=== PATIENT | male | born 1985 | race Caucasian/White ===

== ENCOUNTER 2023-08-06 17:23 | Emergency (ER) | payer OTHER ==
[~2023-08-06] VITALS: Ht 175.3 cm; Wt 68.0 kg
[2023-08-06 18:05] VITALS: BP 118/79
== END 2023-08-06 18:00 | disposition other institution, planned readmission (95) ==
LOC: ED 17:23
DX: F10.10 Alcohol abuse, uncomplicated (principal); Z53.21 Procedure and treatment not carried out due to patient leaving prior to being seen by health care provider
CPT/HCPCS: 80053; 83690; 85025; 99284; G0480

== ENCOUNTER 2023-08-12 10:27 | Emergency (ER) | payer OTHER ==
[~2023-08-12] VITALS: Ht 175.3 cm; Wt 75.3 kg
[~2023-08-12 10:27] MED LIST: LEVETIRACETAM500 MG PO; SERTRALINE HCL50 MG PO
--- OUTSIDE RECORDS SUMMARY | 2023-08-12 10:34 | XMS ---
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 08/06/2023 17:25 - Patient eloped before treatment completed. - Patient with suicidal and/or homicidal ideations eloped. - Patient eloped with IV in place. Details: Patient left AMA CRITERIA MET - [facility] - 2 Visits in 30 Days CARE PROVIDERS There are no care providers on record at this time. Zoë has no Care Guidelines for this patient. EGloria. VISIT COUNT (12 MO.) 3 [facility] H. TOTAL 3 NOTE: Visits indicate total known visits. ED/C VISIT TRACKING (12 MO.) 08/12/2023 10:27 [facility] [place] TYPE: Emergency COMPLAINT: - SUB ABUSED 08/11/2023 14:52 [facility] [place] TYPE: Emergency COMPLAINT: - WITHDRAWALS 08/06/2023 17:25 [facility] [place] TYPE: Emergency COMPLAINT: - ALCOHOL WITHDRAWAL DIAGNOSES: - Alcohol abuse, uncomplicated - Procedure and treatment not carried out due to patient leaving prior to being seen by health care provider INPATIENT VISIT TRACKING (12 MO.) No inpatient visits to display in this time frame [email or web address]
[2023-08-12 10:51] LABS: BASOPHILS 0.6 % (0-2); EOSINOPHILS 0.6 % (0-6); HEMATOCRIT 38.3 % (35.0-50.0); HEMOGLOBIN 12.7 g/dL (12.0-18.0); LYMPHOCYTES 39.5 % (24-44); MCH 29.7 (27-36); MCHC 33.2 g/dl (30-36); MCV 89.4 fl (81-99); MONOCYTES 11.9 % (0-12); NEUTROPHILS 47.4 % (39-80); PLATELET COUNT 197 K/uL (140-440); RBC 4.28 M/ul (4.3-5.7); RDW 17.2 (10.5-15.0)
[2023-08-12 11:08] LABS: ALBUMIN 3.7 g/dL (3.4-5.0); ALBUMIN/GLOBULIN RATIO 0.9 (1.1-2.4); ANION GAP 15.8 (7-21); BILIRUBIN, TOTAL 0.3 ng/dL (0.2-1.0); BUN/CREATININE RATIO 13.04 (6.0-28.6); CALCIUM 8.6 mg/dL (8.5-10.1); CREATININE, SERUM 0.69 mg/dL (0.70-1.30); POTASSIUM 3.8 mmol/L (3.5-5.1); PROTEIN, TOTAL 7.8 g/dL (6.4-8.2)
[2023-08-12 11:35] LABS: ABO O; ANTIBODY SCREEN NEGATIVE; RH POSITIVE
[2023-08-12 11:50] LABS: AMPHETAMINES, UR NEGATIVE (NEGATIVE); BARBITURATES, UR NEGATIVE (NEGATIVE); BENZODIAZEPINES, UR POSITIVE (NEGATIVE); BUPRENORPHINE,UR NEGATIVE (NEGATIVE); COCAINE, UR NEGATIVE (NEGATIVE); MARIJUANA (THC), UR NEGATIVE (NEGATIVE); MDMA, UR NEGATIVE (NEGATIVE); METHADONE, UR NEGATIVE (NEGATIVE); METHAMPHETAMINE, UR NEGATIVE (NEGATIVE); OPIATES, UR NEGATIVE (NEGATIVE); OXYCODONE, UR NEGATIVE (NEGATIVE); PHENCYCLIDINE, UR NEGATIVE (NEGATIVE); TRICYCLIC ANTIDEPRESSANT, UR NEGATIVE (NEGATIVE)
[2023-08-12] MEDS ORDERED: PROMETHAZINE HC25 M1 PO (15:28)
[2023-08-12 16:00] VITALS: BP 100/65
[2023-08-13] MEDS ORDERED: PROTONIX40 MG PO (20:13)
== END 2023-08-12 16:02 | disposition home or self-care (01) ==
LOC: ED 10:27
PROVIDERS: Emergency Medicine
DX: F10.10 Alcohol abuse, uncomplicated (principal); Y90.8 Blood alcohol level of 240 mg/100 ml or more
CPT/HCPCS: 36415; 80053; 83690; 83735; 85025; 86850; 86900; 86901; C9113; G0480; J1790; J3411; J7030

== ENCOUNTER 2023-08-13 12:00 | Emergency (ER) | payer OTHER ==
[~2023-08-13] VITALS: Ht 175.3 cm; Wt 75.3 kg
[~2023-08-13 12:00] MED LIST changes: +PROMETHAZINE HC25 M1 PO
--- OUTSIDE RECORDS SUMMARY | 2023-08-13 12:08 | XMS ---
PreManage Notification: YVES GONZALEZ Security Parish Visitor Events 1 event(s) in the past 18 months Most recent security events: Elopement at [facility] 08/06/2023 17:25 - Patient eloped before treatment completed. - Patient with suicidal and/or homicidal ideations eloped. - Patient eloped with IV in place. Details: Patient left AMA CRITERIA MET - [facility] - 2 Visits in 30 Days CARE PROVIDERS There are no care providers on record at this time. Zoë has no Care Guidelines for this patient. EGloria. VISIT COUNT (12 MO.) 4 [facility] H. TOTAL 4 NOTE: Visits indicate total known visits. ED/C VISIT TRACKING (12 MO.) 08/13/2023 12:01 [facility] [place] TYPE: Emergency COMPLAINT: - ALTERED 08/12/2023 10:27 [facility] [place] TYPE: Emergency COMPLAINT: - SUB ABUSED 08/11/2023 14:52 [facility] [place] TYPE: Emergency COMPLAINT: - WITHDRAWALS 08/06/2023 17:25 [facility] [place] TYPE: Emergency COMPLAINT: - ALCOHOL WITHDRAWAL DIAGNOSES: - Alcohol abuse, uncomplicated - Procedure and treatment not carried out due to patient leaving prior to being seen by health care provider INPATIENT VISIT TRACKING (12 MO.) No inpatient visits to display in this time frame [id number]
[2023-08-13 12:23] LABS: BASOPHILS 0.6 % (0-2); EOSINOPHILS 0.4 % (0-6); HEMATOCRIT 34.4 % (35.0-50.0); HEMOGLOBIN 11.5 g/dL (12.0-18.0); LYMPHOCYTES 25.3 % (24-44); MCH 29.8 (27-36); MCHC 33.6 g/dl (30-36); MCV 88.9 fl (81-99); MONOCYTES 12.2 % (0-12); NEUTROPHILS 61.5 % (39-80); PLATELET COUNT 176 K/uL (140-440); RBC 3.87 M/ul (4.3-5.7); RDW 17.3 (10.5-15.0)
[2023-08-13 12:46] LABS: ALBUMIN 3.4 g/dL (3.4-5.0); ALBUMIN/GLOBULIN RATIO 0.92 (1.1-2.4); ANION GAP 12.3 (7-21); BILIRUBIN, TOTAL 0.3 ng/dL (0.2-1.0); BUN/CREATININE RATIO 12.12 (6.0-28.6); CALCIUM 8.4 mg/dL (8.5-10.1); CREATININE, SERUM 0.66 mg/dL (0.70-1.30); MAGNESIUM 1.4 mg/dL (1.8-2.4); POTASSIUM 3.3 mmol/L (3.5-5.1); PROTEIN, TOTAL 7.1 g/dL (6.4-8.2)
[2023-08-13 14:52] VITALS: BP 120/80
[2023-08-13] MEDS ORDERED: PROTONIX40 MG PO (20:13)
--- NOTE | 2023-08-14 06:26 | EKG ---
[facility] [address] [place], [place] [address] Signed Sinus tachycardia Otherwise normal ECG No previous ECGs available Confirmed by JOSÉ MIGUEL CUEVAS MD ([id number]) on 08/14/2023 6:26:08 AM Electronically Signed By: JOSÉ MIGUEL CUEVAS 08/14/23 0626 PATIENT NAME: YVES GONZALEZ Electrocardiogram DATE OF : 83 PHYSICIAN: JOSÉ MIGUEL CUEVAS REPORT #: [id number] REPORT IS CONFIDENTIAL AND NOT TO BE RELEASED WITHOUT AUTHORIZATION
== END 2023-08-13 14:52 | disposition home or self-care (01) ==
LOC: ED 12:00
PROVIDERS: Emergency Medicine
DX: F10.239 Alcohol dependence with withdrawal, unspecified (principal); F10.229 Alcohol dependence with intoxication, unspecified; Y90.7 Blood alcohol level of 200-239 mg/100 ml; Z79.899 Other long term (current) drug therapy
CPT/HCPCS: 36415; 80053; 83690; 83735; 85025; 93005; 93010; 96365; 96366; 96368; 96375; 99285-25; G0480; J1953; J2060; J2405; J3411; J3475; J7030

== ENCOUNTER 2024-01-30 15:41 | Emergency (ER) | payer OTHER ==
[~2024-01-30] VITALS: Ht 175.3 cm; Wt 68.0 kg
[~2024-01-30 15:41] MED LIST changes: +PROTONIX40 MG PO
--- OUTSIDE RECORDS SUMMARY | 2024-01-30 15:48 | XMS ---
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 - Patient eloped before treatment completed. - Patient with suicidal and/or homicidal ideations eloped. Details: Patient LWBS Elopement at [facility] 08/06/2023 17:25 - Patient eloped with IV in place. - Patient eloped before treatment completed. - Patient with suicidal and/or homicidal ideations eloped. Details: Patient left AMA CRITERIA MET - 6 ED Visits in 6 Months - Group Notification CARE PROVIDERS -[place]- Dentist: Starch Dumper [facility] PHONE: [phone] HAL BUSH [facility] Current PHONE: Unknown MICHELLE OLVETT Emergency Medicine Current PHONE: [phone] MARIAN ENAMORADO Emergency Medicine Current [place] PHONE: [phone] JOSESITO PULIDO Emergency Medicine Current PHONE: [phone] JENNIFER TRINIDAD Nurse Practitioner: Family Kiki RYAN PHONE: Unknown KEMAL FLETCHER Emergency Medicine Current PHONE: [phone] SHERRIE SPARROW Emergency Medicine Current [place] PHONE: [phone] INGRID PRO Current PHONE: Unknown BERTRAND BAKER Emergency Medicine Current PHONE: [phone] [facility]: [facility] Current \F\ [facility] PHONE: [phone] BHARATI HERNANDEZ Emergency Medicine Current [place] PHONE: Unknown [facility] PHONE: Unknown Care Guidelines exist for the following facilities: [facility] ( 04/02/2020 ) Jass VISIT COUNT (12 MO.) [address] [facility] TOTAL 6 NOTE: Visits indicate total known visits. ED/UCC VISIT TRACKING (12 MO.) 01/30/2024 15:[address] [facility] [place] TYPE: Emergency COMPLAINT: - SEIZURE 08/13/2023 18:[address] [facility] [place] [place] TYPE: Emergency COMPLAINT: - VOMITING BLOOD 08/13/2023 12:[address] [facility] [place] [place] TYPE: Emergency COMPLAINT: - ALTERED DIAGNOSES: - Alcohol dependence with intoxication, unspecified - Alcohol dependence with withdrawal, unspecified - Blood alcohol level of 200-239 mg/100 ml - Other foreign food cook specialty (current) drug therapy - Syncope and collapse 08/12/2023 10:[address] [facility] [place] TYPE: Emergency COMPLAINT: - SUB ABUSED DIAGNOSES: - Alcohol abuse, uncomplicated - Blood alcohol level of 240 mg/100 ml or more - Unspecified abdominal pain 08/11/2023 14:52 [facility] [place] TYPE: Emergency COMPLAINT: - WITHDRAWALS 08/06/2023 17:25 [facility] [place] TYPE: Emergency COMPLAINT: - ALCOHOL WITHDRAWAL DIAGNOSES: - Alcohol abuse, uncomplicated - Procedure and treatment not carried out due to patient leaving prior to being seen by health care provider INPATIENT VISIT TRACKING (12 MO.) 08/14/2023 16:49 [facility] [place] TYPE: Critical Care COMPLAINT: - ALCOHOL WITHDRAWAL,SEIZURE DISORDER DIAGNOSES: - Acute gastritis without bleeding - Acute gastritis without bleeding - Alcohol abuse with withdrawal, unspecified - Alcohol dependence with withdrawal, unspecified - Contact with and (suspected) exposure to COVID-19 - Contact with and (suspected) exposure to COVID-19 - Epilepsy, unspecified, not intractable, without status epilepticus - Epilepsy, unspecified, not intractable, without status epilepticus - Hematemesis - Hematemesis - Other foreign food cook specialty (current) drug therapy - Other foreign food cook specialty (current) drug therapy - Other specified postprocedural states - Other specified postprocedural states - Unspecified fall, initial encounter [email or web address]
[2024-01-30] MEDS ORDERED: MULTIVITAMINS 10 ML,FOLIC ACID 1 MG,THIAMINE HCL 100 MG in SODIUM CHLORIDE 0.9% 1,000 ML IV ONE (16:15)
[2024-01-30] MEDS ORDERED: LORazepam 2 MG/ML VIAL IV ONE (16:30)
[2024-01-30] MEDS ORDERED: ondansetron HCL 4 MG/2 ML VIAL IV ONE (16:30)
[2024-01-30] MEDS ORDERED: LORazepam 2 MG/ML VIAL IV/IM PRN (16:30)
[2024-01-30] MEDS ORDERED: levETIRAcetam 500 MG/5 ML VIAL IV ONE (16:30)
[2024-01-30 16:34] LABS: BASOPHILS 0.8 % (0-2); HEMATOCRIT 46.6 % (35.0-50.0); HEMOGLOBIN 15.7 g/dL (12.0-18.0); LYMPHOCYTES 12.2 % (24-44); MCH 32.2 (27-36); MCHC 33.7 g/dl (30-36); MCV 95.5 fl (81-99); MONOCYTES 5.5 % (0-12); NEUTROPHILS 81.5 % (39-80); PLATELET COUNT 209 K/uL (140-440); RBC 4.88 M/ul (4.3-5.7); RDW 14.2 (10.5-15.0)
[2024-01-30 16:42] LABS: INR 1.01 (0.80-1.30); PROTIME 12.6 Sec (11.2-14.2)
[2024-01-30 16:47] LABS: ALBUMIN 3.5 g/dL (3.4-5.0); ALBUMIN/GLOBULIN RATIO 0.74 (1.1-2.4); ANION GAP 18.7 (7-21); BILIRUBIN, TOTAL 0.3 ng/dL (0.2-1.0); BUN/CREATININE RATIO 10.29 (6.0-28.6); CALCIUM 8.2 mg/dL (8.5-10.1); CREATININE, SERUM 0.68 mg/dL (0.70-1.30); POTASSIUM 3.7 mmol/L (3.5-5.1); PROTEIN, TOTAL 8.2 g/dL (6.4-8.2)
[2024-01-30] MEDS ORDERED: MAGNESIUM SULFATE 2 GM/50 ML BAG IV ONE (17:15)
[2024-01-30] MEDS ORDERED: KEPPRA500 MG PO (18:56)
[2024-01-30] MEDS ORDERED: CHLORDIAZEPOXID25 MG PO (18:56)
[2024-01-30] MEDS ORDERED: MAGNESIUM400 M1 PO (18:56)
[2024-01-30 19:09] LABS: AMPHETAMINES, URINE NEGATIVE (NEGATIVE); BARBITURATES, URINE NEGATIVE (NEGATIVE); BENZODIAZEPINE, URINE POSITIVE (NEGATIVE); BUPRENORPHINE, URINE NEGATIVE (NEGATIVE); CANNABINOID, URINE NEGATIVE (NEGATIVE); COCAINE, URINE NEGATIVE (NEGATIVE); ECSTASY, URINE NEGATIVE (NEGATIVE); FENTANYL, URINE NEGATIVE (NEGATIVE); METHADONE, URINE NEGATIVE (NEGATIVE); OPIATES, URINE NEGATIVE (NEGATIVE); OXYCODONE, URINE NEGATIVE (NEGATIVE); PHENCYCLIDINE, URINE NEGATIVE (NEGATIVE)
[2024-01-30] MEDS ORDERED: CHLORDIAZEPOXIDE 25 MG CAP PO ONE (21:15)
[2024-01-30] MEDS ORDERED: ONDANSETRON 4 MG TAB ODT SL ONE (21:15)
[2024-01-30 21:27] VITALS: BP 110/84
--- NOTE | 2024-01-30 23:17 | EKG ---
[facility] [address] [place] [address] Signed Sinus tachycardia Minimal voltage criteria for LVH, may be normal variant ( Sokolow-Cohen ) Borderline ECG When compared with ECG of 13-AUG-2023 12:11, No significant change was found Confirmed by Maco Montes MD () on 01/30/2024 11:17:23 PM Electronically Signed By: MACO MONTES MD 01/30/24 2317 PATIENT NAME: YVES GONZALEZ Electrocardiogram DATE OF : 83 PHYSICIAN: MACO MONTES MD REPORT #: [id number] REPORT IS CONFIDENTIAL AND NOT TO BE RELEASED WITHOUT AUTHORIZATION
== END 2024-01-30 21:27 | disposition home or self-care (01) ==
LOC: ED 15:41
PROVIDERS: Emergency Medicine
DX: F10.139 Alcohol abuse with withdrawal, unspecified (principal); G40.89 Other seizures; Y90.8 Blood alcohol level of 240 mg/100 ml or more; Z79.899 Other long term (current) drug therapy
CPT/HCPCS: 36415; 80053; 80307; 83690; 83735; 85025; 85610; 93005; 93010; 96365; 96375; 99285-25; A9270; G0480; J1953; J2060; J2405; J3411; J3475; J7030

== ENCOUNTER 2024-05-19 06:16 | Emergency (ER) | payer OTHER ==
[~2024-05-19] VITALS: Ht 180.3 cm; Wt 78.4 kg
[~2024-05-19 06:16] MED LIST changes: +CHLORDIAZEPOXID25 MG PO; +KEPPRA500 MG PO; +MAGNESIUM400 M1 PO
--- OUTSIDE RECORDS SUMMARY | 2024-05-19 06:19 | XMS ---
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 - Patient eloped before treatment completed. - Patient with suicidal and/or homicidal ideations eloped. Details: Patient LWBS Elopement at [facility] 08/06/2023 17:25 - Patient eloped with IV in place. - Patient eloped before treatment completed. - Patient with suicidal and/or homicidal ideations eloped. Details: Patient left AMA CRITERIA MET - [facility] CARE PROVIDERS -[facility] Dentist: Area Plant Manager [facility] PHONE: [phone] -[place]- Dentist: Area Plant Manager [facility] Dental [facility] PHONE: [phone] HAL BUSH [facility] Current PHONE: Unknown MICHELLE LOVETT Emergency Medicine Current PHONE: [phone] MARIAN ENAMORADO Emergency [facility] Current [place]LETCHER PHONE: [phone] JOSESITO PULIDO Emergency Medicine Current PHONE: [phone] JENNIFER TRINIDAD Nurse Practitioner: Current [place] PHONE: Unknown KEMAL FLETCHER Emergency Medicine Current PHONE: [phone] SHERRIE SPARROW Emergency Medicine Current [place] PHONE: [phone] [facility] Current PHONE: Unknown BERTRAND BAKER Emergency Medicine Current PHONE: [phone] [facility]: [facility] Current \F\ [facility] PHONE: [phone] BHARATI HERNANDEZ Emergency Medicine Current [place] PHONE: Unknown [facility] Kit PHONE: Unknown Care Guidelines exist for the following facilities: [facility] ( 04/02/2020 ) Jass VISIT COUNT (12 MO.) 7 [facility] TOTAL 7 NOTE: Visits indicate total known visits. ED/UCC VISIT TRACKING (12 MO.) 05/19/2024 06:16 [facility] [place] TYPE: Emergency COMPLAINT: - SEIZURE 01/30/2024 15:42 [facility] [place] TYPE: Emergency COMPLAINT: - SEIZURE DIAGNOSES: - Alcohol abuse with withdrawal, unspecified - Blood alcohol level of 240 mg/100 ml or more - Nausea - Other long term care social worker (current) drug therapy - Other seizures 08/13/2023 18:06 [facility] [place] TYPE: Emergency COMPLAINT: - VOMITING BLOOD 08/13/2023 12:01 [facility] [place] TYPE: Emergency COMPLAINT: - ALTERED DIAGNOSES: - Alcohol dependence with intoxication, unspecified - Alcohol dependence with withdrawal, unspecified - Blood alcohol level of 200-239 mg/100 ml - Other long term care social worker (current) drug therapy - Syncope and collapse 08/12/2023 10:27 [facility] [place] TYPE: Emergency [...] INPATIENT VISIT TRACKING (12 MO.) 08/14/2023 16:[address] [facility] [place] TYPE: Critical Care COMPLAINT: - ALCOHOL [...] epilepticus - Hematemesis - Hematemesis - Other long term care social worker (current) drug therapy - Other shelter (current) drug therapy - Other specified postprocedural states - Other specified postprocedural states - Unspecified fall, initial encounter [email or web address]
[2024-05-19] MEDS ORDERED: FOLIC ACID 1 MG/0.2 ML ML ONE (06:30)
[2024-05-19] MEDS ORDERED: ondansetron HCL 4 MG/2 ML VIAL IV ONE (06:30)
[2024-05-19] MEDS ORDERED: LORazepam 2 MG/ML VIAL IV ONE (06:30)
[2024-05-19] MEDS ORDERED: TUBERCULIN PPD 5 UNITS/0.1 ML VIAL SUB-Q SCH (06:30)
[2024-05-19] MEDS ORDERED: THIAMINE HCL 100 MG,FOLIC ACID 1 MG,MULTIVITAMINS 10 ML in SODIUM CHLORIDE 0.9% 1,000 ML IV ONE (06:30)
[2024-05-19 06:32] LABS: BASOPHILS 0.8 % (0-2); EOSINOPHILS 0.6 % (0-6); HEMATOCRIT 37.3 % (35.0-50.0); HEMOGLOBIN 12.6 g/dL (12.0-18.0); LYMPHOCYTES 32.7 % (24-44); MCH 29.9 (27-36); MCHC 33.7 g/dl (30-36); MCV 88.8 fl (81-99); MONOCYTES 8.9 % (0-12); PLATELET COUNT 259 K/uL (140-440); RDW 15.1 (10.5-15.0)
[2024-05-19 06:43] LABS: INR 1.08 (0.80-1.30); PROTIME 13.3 Sec (11.2-14.2)
[2024-05-19 06:54] LABS: ALBUMIN 3.5 g/dL (3.4-5.0); ALBUMIN/GLOBULIN RATIO 0.85 (1.1-2.4); ANION GAP 17.5 (7-21); BILIRUBIN, TOTAL 0.6 ng/dL (0.2-1.0); BUN/CREATININE RATIO 7.89 (6.0-28.6); CALCIUM 8.8 mg/dL (8.5-10.1); CREATININE, SERUM 0.76 mg/dL (0.70-1.30); MAGNESIUM 1.3 mg/dL (1.8-2.4); POTASSIUM 3.5 mmol/L (3.5-5.1); PROTEIN, TOTAL 7.6 g/dL (6.4-8.2)
[2024-05-19] MEDS ORDERED: levETIRAcetam 500 MG/5 ML VIAL IV ONE (07:00)
[2024-05-19] MEDS ORDERED: MAGNESIUM SULFATE 2 GM/50 ML BAG IV ONE (07:45)
[2024-05-19] MEDS ORDERED: ONDANSETRON ODT8 MG PO (08:30)
[2024-05-19] MEDS ORDERED: SODIUM CHLORIDE 0.9% 1,000 ML IV ONE (08:30)
[2024-05-19] MEDS ORDERED: CHLORDIAZEPOXID25 MG PO ×2 (08:30)
[2024-05-19 09:07] VITALS: BP 153/83
[2024-05-19 09:19] LABS: AMPHETAMINES, URINE NEGATIVE (NEGATIVE); BARBITURATES, URINE NEGATIVE (NEGATIVE); BENZODIAZEPINE, URINE POSITIVE (NEGATIVE); BUPRENORPHINE, URINE NEGATIVE (NEGATIVE); CANNABINOID, URINE NEGATIVE (NEGATIVE); COCAINE, URINE NEGATIVE (NEGATIVE); ECSTASY, URINE NEGATIVE (NEGATIVE); FENTANYL, URINE NEGATIVE (NEGATIVE); METHADONE, URINE NEGATIVE (NEGATIVE); OPIATES, URINE NEGATIVE (NEGATIVE); OXYCODONE, URINE NEGATIVE (NEGATIVE); PHENCYCLIDINE, URINE NEGATIVE (NEGATIVE)
[2024-06-23] MEDS ORDERED: SERTRALINE HCL100 MG PO (08:13)
[2024-06-23] MEDS ORDERED: SSD25 GM TOP (08:13)
[2024-06-23] MEDS ORDERED: BUSPIRONE HCL7.5 MG PO (08:14)
[2024-06-23] MEDS ORDERED: HYDROXYZINE PAM25 MG PO (16:48)
[2024-06-24] MEDS ORDERED: CHLORDIAZEPOXID25 MG PO (09:14)
== END 2024-05-19 09:11 | disposition home or self-care (01) ==
LOC: ED 06:16
PROVIDERS: Internal Medicine
DX: F10.10 Alcohol abuse, uncomplicated (principal); K29.20 Alcoholic gastritis without bleeding; Y90.8 Blood alcohol level of 240 mg/100 ml or more; G40.909 Epilepsy, unspecified, not intractable, without status epilepticus; Z79.899 Other long term (current) drug therapy
CPT/HCPCS: 36415; 71045; 80053; 80307; 82553; 83735; 84100; 85025; 85610; 96374; 96375; 99284-25; G0480; J1953; J2060; J2405; J3411; J3475; J7030

== ENCOUNTER 2024-05-22 19:13 | Emergency (ER) | payer OTHER ==
[~2024-05-22] VITALS: Ht 180.3 cm; Wt 78.0 kg
[~2024-05-22 19:13] MED LIST changes: +ONDANSETRON ODT8 MG PO
--- OUTSIDE RECORDS SUMMARY | 2024-05-22 19:20 | XMS ---
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 - Patient eloped before treatment completed. - Patient with suicidal and/or homicidal ideations eloped. Details: Patient LWBS Elopement at [facility] 08/06/2023 17:25 - Patient eloped with IV in place. - Patient eloped before treatment completed. - Patient with suicidal and/or homicidal ideations eloped. Details: Patient left AMA CRITERIA MET - Group Notification - [facility] - 2 Visits in 30 Days CARE PROVIDERS -, [facility] Dentist: Net Developer [facility] PHONE: [phone] -, [place]- Dentist: Net Developer [facility] PHONE: [phone] HAL BUSH [facility] Current PHONE: Unknown MICHELLE LOVETT Emergency Medicine Current PHONE: [phone] MARIAN ENAMORADO Emergency Medicine Current [place] PHONE: [phone] JOSESITO PULIDO Emergency Medicine Current PHONE: [phone] JENNIFER TRINIDAD Nurse Practitioner: Current [place] PHONE: Unknown KEMAL FLETCHER Emergency Medicine Current PHONE: [phone] SHERRIE SPARROW Emergency Medicine Current [place] PHONE: [phone] INGR[employer] PRO Current PHONE: Unknown BERTRAND BAKER Emergency Medicine Current PHONE: [phone] [facility]: [facility] Current \F\ [facility] PHONE: [phone] BHARATI HERNANDEZ Emergency Medicine Current [place] PHONE: Unknown [facility] Kit PHONE: Unknown Care Guidelines exist for the following facilities: [facility] ( 04/02/2020 ) Jass VISIT COUNT (12 MO.) 8 [facility] TOTAL 8 NOTE: Visits indicate total known visits. ED/UCC VISIT TRACKING (12 MO.) 05/22/2024 19:14 [facility] [place] TYPE: Emergency COMPLAINT: - WITHDRAWAL 05/19/2024 06:16 [facility] [place] TYPE: Emergency COMPLAINT: - SEIZURE 01/30/2024 15:42 [facility] [place] TYPE: Emergency COMPLAINT: - SEIZURE DIAGNOSES: - Alcohol abuse with withdrawal, unspecified - Blood alcohol level of 240 mg/100 ml or more - Nausea - Other manager terminal (current) drug therapy - Other seizures 08/13/2023 18:06 [facility] [place] TYPE: Emergency COMPLAINT: - VOMITING BLOOD 08/13/2023 12:01 [facility] [place] TYPE: Emergency COMPLAINT: - ALTERED DIAGNOSES: - Alcohol dependence with intoxication, unspecified - Alcohol dependence with withdrawal, unspecified - Blood alcohol level of 200-239 mg/100 ml - Other manager terminal (current) drug therapy - Syncope and collapse [...] epilepticus - Hematemesis - Hematemesis - Other manager terminal (current) drug therapy - Other correction (current) drug therapy - Other specified postprocedural states - Other specified postprocedural states - Unspecified fall, initial encounter [email or web address]
[2024-05-22] MEDS ORDERED: ondansetron HCL 4 MG/2 ML VIAL IV ONE (19:30)
[2024-05-22] MEDS ORDERED: LORazepam 2 MG/ML VIAL IV ONE ×2 (19:30→20:00)
[2024-05-22] MEDS ORDERED: MULTIVITAMINS 10 ML,FOLIC ACID 1 MG,THIAMINE HCL 100 MG in SODIUM CHLORIDE 0.9% 1,000 ML IV ONE (19:30)
[2024-05-22] MEDS ORDERED: levETIRAcetam 500 MG/5 ML VIAL IV ONE (19:30)
[2024-05-22 19:37] LABS: BASOPHILS 0.4 % (0-2); EOSINOPHILS 0.2 % (0-6); HEMATOCRIT 36.6 % (35.0-50.0); HEMOGLOBIN 12.5 g/dL (12.0-18.0); LYMPHOCYTES 13.7 % (24-44); MCH 30.8 (27-36); MCHC 34.2 g/dl (30-36); MCV 89.9 fl (81-99); MONOCYTES 5.9 % (0-12); NEUTROPHILS 79.8 % (39-80); PLATELET COUNT 240 K/uL (140-440); RBC 4.07 M/ul (4.3-5.7); RDW 15.3 (10.5-15.0)
[2024-05-22] MEDS ORDERED: FOLIC ACID 1 MG/0.2 ML ML ONE (19:42)
[2024-05-22 19:52] LABS: ALBUMIN 3.5 g/dL (3.4-5.0); ALBUMIN/GLOBULIN RATIO 0.85 (1.1-2.4); ANION GAP 15.5 (7-21); BILIRUBIN, TOTAL 0.9 ng/dL (0.2-1.0); BUN/CREATININE RATIO 7.6 (6.0-28.6); CALCIUM 8.1 mg/dL (8.5-10.1); CREATININE, SERUM 0.92 mg/dL (0.70-1.30); POTASSIUM 3.5 mmol/L (3.5-5.1); PROTEIN, TOTAL 7.6 g/dL (6.4-8.2)
[2024-05-22] MEDS ORDERED: droPERidol 5 MG/2 ML VIAL IV ONE (20:45)
[2024-05-22 20:51] LABS: AMPHETAMINES, URINE NEGATIVE (NEGATIVE); BARBITURATES, URINE NEGATIVE (NEGATIVE); BENZODIAZEPINE, URINE POSITIVE (NEGATIVE); BUPRENORPHINE, URINE NEGATIVE (NEGATIVE); CANNABINOID, URINE NEGATIVE (NEGATIVE); COCAINE, URINE NEGATIVE (NEGATIVE); ECSTASY, URINE NEGATIVE (NEGATIVE); FENTANYL, URINE NEGATIVE (NEGATIVE); METHADONE, URINE NEGATIVE (NEGATIVE); OPIATES, URINE NEGATIVE (NEGATIVE); OXYCODONE, URINE NEGATIVE (NEGATIVE); PHENCYCLIDINE, URINE NEGATIVE (NEGATIVE)
[2024-05-22] MEDS ORDERED: NALTREXONE HCL50 MG PO (20:56)
[2024-05-22] MEDS ORDERED: KEPPRA1000 MG PO (20:56)
[2024-05-22] MEDS ORDERED: CHLORDIAZEPOXID25 MG PO (20:56)
[2024-05-22] MEDS ORDERED: LORazepam 1 MG HOME.PACK PO ONE (21:00)
[2024-05-22 22:00] VITALS: BP 121/83
[2024-06-23] MEDS ORDERED: SSD25 GM TOP (08:13)
[2024-06-23] MEDS ORDERED: SERTRALINE HCL100 MG PO (08:13)
[2024-06-23] MEDS ORDERED: BUSPIRONE HCL7.5 MG PO (08:14)
[2024-06-23] MEDS ORDERED: HYDROXYZINE PAM25 MG PO (16:48)
[2024-06-24] MEDS ORDERED: CHLORDIAZEPOXID25 MG PO (09:14)
== END 2024-05-22 22:00 | disposition home or self-care (01) ==
LOC: ED 19:13
PROVIDERS: Family Medicine
DX: F10.139 Alcohol abuse with withdrawal, unspecified (principal); Y90.6 Blood alcohol level of 120-199 mg/100 ml
CPT/HCPCS: 36415; 80053; 80307; 83735; 85025; 96365; 96366; 96375; 96376; 99285-25; G0480; J1790; J1953; J2060; J2405; J3411; J7030

== ENCOUNTER 2024-06-23 04:49 | Inpatient (IN) | payer OTHER ==
[~2024-06-23] VITALS: Ht 180.3 cm; Wt 73.0 kg
[2024-06-23] VITALS (18 sets, daily range): BP systolic 97–115; BP diastolic 56–89
[~2024-06-23 04:49] MED LIST changes: +KEPPRA1000 MG PO; +NALTREXONE HCL50 MG PO
--- OUTSIDE RECORDS SUMMARY | 2024-06-23 04:51 | XMS ---
PreManage Notification: YVES GONZALEZ Security Travel Guide Events 2 event(s) in the past 18 months Most recent security events: Elopement at [facility] 08/11/2023 14:52 - Patient eloped with IV in place. - Patient eloped before treatment completed. - Patient with suicidal and/or homicidal ideations eloped. Details: Patient LWBS Elopement at [facility] 08/06/2023 17:25 - Patient eloped with IV in place. - Patient eloped before treatment completed. - Patient with suicidal and/or homicidal ideations eloped. Details: Patient left AMA CRITERIA MET - Group [facility] CARE PROVIDERS -[facility] Dentist: Rubber Goods Cutter Finisher [facility] PHONE: [phone] -[place]- Dentist: Rubber Goods Cutter Finisher [facility] Dental [facility] PHONE: [phone] HAL BUSH [facility] Current PHONE: Unknown MICHELLE LOVETT Emergency Medicine Current PHONE: [phone] MARIAN ENAMORADO Emergency [facility] Current [place] PHONE: [phone] JOSESITO PULIDO Emergency Medicine Current PHONE: [phone] JENNIFER TRINIDAD Nurse Practitioner: Current [place] PHONE: Unknown KEMAL FLETCHER Emergency Medicine Current PHONE: [phone] SHERRIE SPARROW Emergency Medicine Current [place] PHONE: [phone] INGRID PRO Current PHONE: Unknown BERTRAND BAKER Emergency Medicine Current PHONE: [phone] [facility]: [facility] Current \F\ [facility] PHONE: [phone] BHARATI HERNANDEZ Emergency Medicine Current [place] PHONE: Unknown [facility] Kit PHONE: Unknown Care Guidelines exist for the following facilities: [facility] ( 04/02/2020 ) Jass VISIT COUNT (12 MO.) 9 [facility] TOTAL 9 NOTE: Visits indicate total known visits. ED/UCC VISIT TRACKING (12 MO.) 06/23/2024 04:49 [facility] [place] TYPE: Emergency COMPLAINT: - VOMITING 05/22/2024 19:14 [facility] [place] TYPE: Emergency COMPLAINT: - WITHDRAWAL DIAGNOSES: - Alcohol abuse with withdrawal, unspecified - Blood alcohol level of 120-199 mg/100 ml 05/19/2024 06:16 [facility] [place] TYPE: Emergency COMPLAINT: - SEIZURE DIAGNOSES: - Alcohol abuse, uncomplicated - Alcoholic gastritis without bleeding - Blood alcohol level of 240 mg/100 ml or more - Epilepsy, unspecified, not intractable, without status epilepticus - Other fci (current) drug therapy 01/30/2024 15:42 [facility] [place] TYPE: Emergency COMPLAINT: - SEIZURE DIAGNOSES: - Alcohol abuse with withdrawal, unspecified - Blood alcohol level of 240 mg/100 ml or more - Nausea - Other fci (current) drug therapy - Other seizures 08/13/2023 18:06 [facility] [place] TYPE: Emergency COMPLAINT: - VOMITING BLOOD 08/13/2023 12:01 [facility] [place] TYPE: Emergency COMPLAINT: - ALTERED DIAGNOSES: - Alcohol dependence with intoxication, unspecified - Alcohol dependence with withdrawal, unspecified - Blood alcohol level of 200-239 mg/100 ml - Other assistant terminal manager (current) drug therapy - Syncope and collapse [...] epilepticus - Hematemesis - Hematemesis - Other assistant terminal manager (current) drug therapy - Other assistant terminal manager (current) drug therapy - Other specified postprocedural states - Other specified postprocedural states - Unspecified fall, initial encounter [email or web address]
[2024-06-23] MEDS ORDERED: FOLIC ACID 1 MG/0.2 ML ML ONE (04:56)
[2024-06-23] MEDS ORDERED: SODIUM CHLORIDE 0.9% 1,000 ML IV ONE (04:56)
[2024-06-23] MEDS ORDERED: THIAMINE HCL 200 MG/2 ML VIAL ONE (04:56)
[2024-06-23] MEDS ORDERED: MULTIVITAMINS 10 ML VIAL ONE (04:57)
[2024-06-23] MEDS ORDERED: diazePAM 10 MG/2 ML SYR IV PRN (05:00)
[2024-06-23] MEDS ORDERED: FAMOTIDINE 20 MG/ 2 ML VIAL IV ONE (05:00)
[2024-06-23] MEDS ORDERED: THIAMINE HCL 100 MG,FOLIC ACID 1 MG,MULTIVITAMINS 10 ML in SODIUM CHLORIDE 0.9% 1,000 ML IV ONE ×2 (05:00→06:45)
[2024-06-23] MEDS ORDERED: ondansetron HCL 4 MG/2 ML VIAL IV ONE (05:00)
[2024-06-23 05:08] LABS: MCV 90.4 fl (81-99); RBC 4.64 M/ul (4.3-5.7)
[2024-06-23 05:11] LABS: BASOPHILS 0.8 % (0-2); EOSINOPHILS 0.4 % (0-6); LYMPHOCYTES 13.6 % (24-44); MCH 30.2 (27-36); MCHC 33.4 g/dl (30-36); MONOCYTES 5.9 % (0-12); NEUTROPHILS 79.3 % (39-80); PLATELET COUNT 284 K/uL (140-440); RDW 16.7 (10.5-15.0)
[2024-06-23 05:15] LABS: INR 1.01 (0.80-1.30); PROTIME 12.6 Sec (11.2-14.2)
[2024-06-23 05:21] LABS: ALBUMIN/GLOBULIN RATIO 0.98 (1.1-2.4); ANION GAP 18.6 (7-21); BILIRUBIN, TOTAL 0.5 ng/dL (0.2-1.0); BUN/CREATININE RATIO 14.45 (6.0-28.6); CALCIUM 9.5 mg/dL (8.5-10.1); CREATININE, SERUM 0.83 mg/dL (0.70-1.30); MAGNESIUM 1.4 mg/dL (1.8-2.4); POTASSIUM 3.6 mmol/L (3.5-5.1); PROTEIN, TOTAL 8.1 g/dL (6.4-8.2)
[2024-06-23] MEDS ORDERED: MAGNESIUM SULFATE 2 GM/50 ML BAG IV ONE ×3 (05:30→08:45)
[2024-06-23] MEDS ORDERED: LORazepam 2 MG/ML VIAL IV/IM PRN (06:45)
[2024-06-23] MEDS ORDERED: SSD25 GM TOP ×2 (08:13)
[2024-06-23] MEDS ORDERED: SERTRALINE HCL100 MG PO ×2 (08:13)
[2024-06-23] MEDS ORDERED: BUSPIRONE HCL7.5 MG PO ×2 (08:14)
--- NOTE | 2024-06-23 08:44 | NUR ---
PATIENT RESTING IN BED. VOIDED IN URINAL, SPECIMEN SENT TO LAB.
[2024-06-23] MEDS ORDERED: LACTATED RINGER'S 1,000 ML IV SCH (08:45)
[2024-06-23] MEDS ORDERED: ondansetron HCL 4 MG/2 ML VIAL IV PRN (08:45)
[2024-06-23] MEDS ORDERED: SILVER SULFADIAZINE 50 GM JAR TOP SCH (09:00)
[2024-06-23] MEDS ORDERED: ENOXAPARIN SODIUM 40 MG/0.4 ML SYR SUB-Q SCH (09:00)
[2024-06-23 09:20] LABS: AMPHETAMINES, URINE NEGATIVE (NEGATIVE); BARBITURATES, URINE NEGATIVE (NEGATIVE); BENZODIAZEPINE, URINE POSITIVE (NEGATIVE); BUPRENORPHINE, URINE NEGATIVE (NEGATIVE); CANNABINOID, URINE NEGATIVE (NEGATIVE); COCAINE, URINE NEGATIVE (NEGATIVE); ECSTASY, URINE NEGATIVE (NEGATIVE); FENTANYL, URINE NEGATIVE (NEGATIVE); METHADONE, URINE NEGATIVE (NEGATIVE); OPIATES, URINE NEGATIVE (NEGATIVE); OXYCODONE, URINE NEGATIVE (NEGATIVE); PHENCYCLIDINE, URINE NEGATIVE (NEGATIVE)
--- NOTE | 2024-06-23 09:24 | NUR ---
PATIENT SCORES A 10 ON CIWA. MEDICATED PER EMAR. DECLINES BREAKFAST BUT TOLERATING SIP OF FLUIDS WELL. CALL LIGHT IN REACH. BED IN LOWEST POSITION AND LOCKED. CALL LIGHT IN REACH. SAFETY EDUCATION PROVIDED AND PATIENT VERBALIZED UNDERSTANDING.
--- NOTE | 2024-06-23 10:31 | NUR ---
WOUND NOTED TO LEFT POSTERIOR FOREARM ON ADMISSION. PATIENT ENDORSES A BURN FROM DROPPING MICROWAVED FOOD ON HIS ARM. WOUND IS APPROXIMATELY 10CM IN LENGTH. SILVADENE CREAM APPLIED PER ORDER AFTER WOUND CLEANSED WITH WOUND CLEANSER SPRAY. NON-ADHERENT PAD APPLIED AND WRAPPED WITH GAUZE. PRIOR TO TREATMENT, PATIENT VERBALIZED PERMISSION TO PHOTO. PHOTOGRAPH OBTAINED AND PLACED IN CHART.
--- NOTE | 2024-06-23 11:04 | NUR ---
UR CLINICAL REVIEW: [facility] INPT FOR SUBSTANCE-RELATED DISORDERS [facility] INPT CCU 06/23/24 @ 0619 ORDER MATCHES STATUS DC PLAN PENDING ASSESSMENT. AUTH PENDING CLINICAL REVIEW, SENDING CLINICALS TO [facility] VIA [email or web address] TODAY. 06/25/24
--- NOTE | 2024-06-23 11:44 | NUR ---
PATIENT MEDICATED PER EMAR FOR CIWA 9 AND NAUSEA. USED URINAL TO VOID 200ML DARK YELLOW URINE. ENCOURAGED PO FLUIDS. DENIES OTHER NEEDS OR CONCERNS. CALL LIGHT IN REACH.
[2024-06-23] MEDS ORDERED: PHARMACY RENAL DOSE ADJUSTMENT 1 DOSE MISC PO SCH (12:00)
--- NOTE | 2024-06-23 13:21 | NUR ---
PATIENT WAKES EASILY FOR CIWA ASSESSMENT. SCORED CHARTED. DECLINES CLEAR LIQUID LUNCH. FRESH BEVERAGE PROVIDED. IVF INFUSING WITHOUT DIFFICULTY. DENIES PAIN OR OTHER NEEDS AT THIS TIME. CALL LIGHT IN REACH.
--- NOTE | 2024-06-23 13:36 | NUR ---
VISITED DURING SPIRITUAL CARE ROUNDS. PT APPEARED TO BE SLEEPING. DID NOT DISTURB. PROVIDED PRAYER.
--- NOTE | 2024-06-23 14:12 | NUR ---
PATIENT OPENS EYES TO VOICE. STATES HE LIVES IN APARTMENT WITH ROOMMATE. DOES TAKE STAIRS, NO ISSUES. HAS NO DME. DOES NOT DRIVES, UTILIZES [employer] FOR APPOINTMENTS. HAS NO JOB, STATES NO INCOME. DOES RECEIVE FOOD STAMPS $90/MONTH. STATES HIS ROOMMATE IS MOVING OUT AND HE NEEDS TO FIND HOUSING WITHIN 30 DAYS. INFORMATION REGARDING LOW INCOME HOUSING IN [place] PROVIDED. [employer] CARD INFORMATION PROVIDED FROM [facility]. PATIENT STATES HE DRINKS DAILY, REFUSES RESOURCES AT THIS TIME. STATES HE HAS ALL THE RESOURCES, HE JUST DOES NOT USE THEM. DISCUSSED POTENTIAL REHAB IF HE WOULD LIKE. [place]ENO CARD AND PAMPHLET REGARDING ADDICTION AND HOMELESSNESS PROVIDED. PATIENT STATES HE DOES NOT WANT INFORMATION REGARDING FOOD PANTRY. INFORMED PATIENT IF HE HAS NEEDS OR QUESTIONS TO NOTIFY STAFF. VERBALIZES UNDERSTANDING.
--- NOTE | 2024-06-23 14:39 | NUR ---
PATIENT RESTING IN BED AWAKE. CIWA SCORE 10. MEDICATED PER EMAR. PATIENT DENIES PAIN OR NEEDS AT THIS TIME. CALL LIGHT IN REACH. URINAL EMPTIED FOR 300ML DARK YELLOW URINE.
--- NOTE | 2024-06-23 15:52 | NUR ---
PATIENT RESTING IN BED. SPOTANEOUSLY OPENS EYES TO SOUND. PATIENT REPORTS "FEELING A LITTLE BETTER". CIWA SCORES AT 3. PATIENT CONTINUES TO REPORT DECREASED APPETITE BUT DENIES NAUSEA OR VOMITING. DENIES PAIN, NEEDS OR CONCERNS. CALL LIGHT IN REACH.
[2024-06-23] MEDS ORDERED: HYDROXYZINE PAM25 MG PO ×2 (16:48)
--- NOTE | 2024-06-23 16:49 | NUR ---
MED REC COMPLETE
--- NOTE | 2024-06-23 17:04 | NUR ---
PA CHARTED, PATIENT MEDICATED WITH ATIVAN PER EMAR. FRESH WATER GIVEN TO PATIENT. OFFERED MORE CLEAR LIQUID OPTIONS BUT PATIENT DECLINED STATING "I JUST START TO PUKE WHEN I EAT TOO MUCH WHEN I AM DETOXING". EDUCATION PROVIDED ON MOVING AND REPOSITIONING WHILE IN BED. PATIENT MOVED HIMSELF UP IN BED AND SAT UP. NEW BAG IVF HUNG. CALL LIGHT IN REACH.
--- NOTE | 2024-06-23 20:25 | NUR ---
HAND OFF REPORT RECEIVED FROM DAY SHIFT RN. PT LAYING AWAKE IN BED. CIWA COMPLETED WITH A SCORE OF 15. PT STATES HE FEELS NAUSEOUS AND HAS A HEADACHE. PT HAS MODERATE TREMORS WHEN ARMS ARE EXTENDED. PT IS A/O, BUT APPEARS AGITATED. PT LUNGS ARE CLEAR AND IS ON ROOM AIR. PT BT ARE ACTIVE. PT IV SITES ARE WNL. PT DRESSING ON LEFT ARM IS C/D/I. CALL LIGHT WITHIN REACH, BED IN LOW AND LOCKED POSTION.
--- NOTE | 2024-06-23 20:58 | NUR ---
PRN ATIVAN GIVEN FOR CIWA OF 15, PLEASE SEE EMAR
--- NOTE | 2024-06-23 22:09 | NUR ---
CIWA SCORE OF 14. PRN ATIVAN GIVEN PER EMAR
--- NOTE | 2024-06-23 23:30 | NUR ---
UPDATED DR SEBASTIAN ON PT STATUS AND CIWA SCORES. DICUSSED HOW PT STATED LIBRIUM WORKS BETTER FOR HIS WITHDRAWALS. DR SAID HE WILL RE EVALUATE IN THE MORNING. NEW ORDER RECEIVED FOR ONE TIME INCREASED DOSE OF ATIVAN - SEE EMAR
[2024-06-24] VITALS: BP 108/64
--- NOTE | 2024-06-24 00:45 | NUR ---
PT ASSESSMENT COMPLETE. PT AWAKE IN BED. PT STATES HE HAS A MILD HEADACHE AND HIS NAUSEA IS BETTER. PT VSS. PT CONTINUES TO HAVE TREMORS. PT APPEARS TO BE LESS AGITATED. PT REMAINS ON RA, TOLERATING WELL. PT LUNGS ARE CLEAR. BT ARE ACTIVE. PT HAS NO NEEDS AT THIS TIME. CALL LIGHT WITHIN REACH.
[2024-06-24] MEDS ORDERED: LORazepam 2 MG/ML VIAL IV ONE (01:00)
--- NOTE | 2024-06-24 01:30 | NUR ---
PT CIWA SCORE 8; PRN ATIVAN GIVEN PER EMAR
[2024-06-24 02:00] VITALS: BP 111/61
--- NOTE | 2024-06-24 02:54 | NUR ---
CIWA SCORE OF 6. PT STATES HE "FEELS BETTER". PT STATES HE IS IN AND OUT OF SLEEP. PT DENIES ANY NEEDS AT THIS TIME. CALL LIGHT WITHIN REACH, BED IN LOW AND LOCKED POSTION.
[2024-06-24 03:00] VITALS: BP 111/61
[2024-06-24 04:00] VITALS: BP 103/62
--- NOTE | 2024-06-24 04:15 | NUR ---
PT RESTING IN BED WITH EYES CLOSED. RESPIRATIONS EVEN AND UNLABORED. PT VSS. CALL LIGHT WITHIN REACH, BED IN LOW AND LOCKED POSITION.
--- NOTE | 2024-06-24 05:10 | NUR ---
PT USED CALL LIGHT. UPON ENTERING THE ROOM PT IS SITTING UP IN BED AND STATES HE IS HEARING AND SEEING PEOPLE IN HIS ROOM. PT STATES "I DONT WANT YOU TO THINK I AM CRAZY AND SEND ME TO ONE OF THOSE PSYCH PLACES". PT THEN STARTS VOMITING. PT GIVEN PRN ATIVAN AND ZOFRAN PER EMAR.
[2024-06-24 05:36] LABS: BASOPHILS 0.4 % (0-2); EOSINOPHILS 1.2 % (0-6); HEMATOCRIT 35.9 % (35.0-50.0); HEMOGLOBIN 12.1 g/dL (12.0-18.0); LYMPHOCYTES 17.6 % (24-44); MCH 30.2 (27-36); MCHC 33.6 g/dl (30-36); MCV 89.9 fl (81-99); MONOCYTES 6.8 % (0-12); PLATELET COUNT 199 K/uL (140-440); RDW 16.2 (10.5-15.0)
[2024-06-24 05:58] LABS: ALBUMIN/GLOBULIN RATIO 0.88 (1.1-2.4); ANION GAP 14.4 (7-21); BILIRUBIN, TOTAL 0.9 ng/dL (0.2-1.0); BUN/CREATININE RATIO 10.25 (6.0-28.6); CALCIUM 8.6 mg/dL (8.5-10.1); CREATININE, SERUM 0.78 mg/dL (0.70-1.30); MAGNESIUM 1.5 mg/dL (1.8-2.4); POTASSIUM 3.4 mmol/L (3.5-5.1); PROTEIN, TOTAL 6.4 g/dL (6.4-8.2)
[2024-06-24 06:00] VITALS: BP 115/79
[2024-06-24] MEDS ORDERED: POTASSIUM CHLORIDE 10 MEQ TABCR PO ONE (06:30)
[2024-06-24] MEDS ORDERED: MAGNESIUM SULFATE 2 GM/50 ML BAG IV ONE (06:30)
--- NOTE | 2024-06-24 06:30 | NUR ---
PT BECOMES MORE AGITATED. PT PULLS OFF LEADS AND ATTEMPTS TO PULL OUT IV'S. DR MCARTHURUNG IN TO SEE PT. PT GIVEN PRN ATIVAN PER EMAR. SEE NEW ORDERS PER EMAR.
[2024-06-24] MEDS ORDERED: PHENOBARBITAL SOD 130 MG/ML VIAL IV PRN (07:00)
[2024-06-24] MEDS ORDERED: CHLORDIAZEPOXIDE 25 MG CAP PO STA (07:07)
[2024-06-24] MEDS ORDERED: THIAMINE HCL 100 MG TAB PO SCH (08:00)
--- NOTE | 2024-06-24 08:04 | NUR ---
PATIENT ASKED TO HAVE EVERYTHING READY FOR DISCHARGE AT 0900, HE ALSO SAID, "I AM JUST NOW ABLE TO KEEP THINGS DOWN." IN REGARDS TO NOT WANTING TO EAT ANYTHING OR TAKE ORAL MEDICATIONS AT THIS TIME.
--- NOTE | 2024-06-24 08:17 | NUR ---
PATIENT CALLED [facility] AND ASKED MALIKA RN TO HAVE HIS IV REMOVED HE PLANS TO LEAVE AT 0900 [place].
[2024-06-24 08:19] VITALS: BP 118/80
--- NOTE | 2024-06-24 08:47 | NUR ---
DRESSING CHANGED AT LEFT FA, WOUND CLEANSER SPRAYED, DABBED DRY WITH STERILE FLUFF GAUZE TRAY, SILVADENE CREAM APPLIED AND THEN KERLIX WRAP. FOLLOW UP APPOINTMENT MADE WITH PCP.
[2024-06-24] MEDS ORDERED: THIAMINE HCL 100 MG in SODIUM CHLORIDE 0.9% 100 ML IV SCH (09:00)
--- NOTE | 2024-06-24 09:07 | NUR ---
PATIENT REMOVED IV SITES HIMSELF AND REMOVED MONITOR LEADS, HE IS ALERT AND ORIENTED WITH PLAN TO DISCHARGE BY 0900. HE IS NOW DRESSED IN HOME CLOTHS AND WAITING AT [facility], CALLED AND THEN MET WITH, TWICE TO NOTIFY.
[2024-06-24] MEDS ORDERED: CHLORDIAZEPOXID25 MG PO ×2 (09:14)
--- NOTE | 2024-06-24 09:23 | NUR ---
PATIENT AMBULATING OUT THE HOSPITAL NOW. RN LOOPING WALKING HIM OUT WILL STOP IN M/S TO CHECK ON WRITTEN SCRIPT.
== END 2024-06-24 09:25 | disposition home or self-care (01) | DRG 897 ==
LOC: ED 04:49 → CCU 06:27
PROVIDERS: Internal Medicine; ADMIT Student in an Organized Health Care Education/Training Program; ATTEND Student in an Organized Health Care Education/Training Program
PROC: HZ2ZZZZ Detoxification Services for Substance Abuse Treatment (ICD-10-PCS; principal; 2024-06-23)
DX: F10.239 Alcohol dependence with withdrawal, unspecified (principal); E83.42 Hypomagnesemia; Z66 Do not resuscitate; G40.909 Epilepsy, unspecified, not intractable, without status epilepticus; Z98.890 Other specified postprocedural states; Z79.899 Other long term (current) drug therapy; Z88.8 Allergy status to other drugs, medicaments and biological substances
CPT/HCPCS: 36415; 71045; 80053; 80307; 83735; 84100; 85025; 85610; A9270; G0480; J1650; J2060; J2405; J3360; J3411; J3475; J7030; J7121

== ENCOUNTER 2024-06-26 16:59 | Emergency (ER) | payer OTHER ==
[~2024-06-26] VITALS: Ht 180.3 cm; Wt 77.2 kg
[~2024-06-26 16:59] MED LIST changes: +BUSPIRONE HCL7.5 MG PO; +HYDROXYZINE PAM25 MG PO; +SERTRALINE HCL100 MG PO; +SSD25 GM TOP
--- OUTSIDE RECORDS SUMMARY | 2024-06-26 17:01 | XMS ---
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 - Patient eloped before treatment completed. - Patient with suicidal and/or homicidal ideations eloped. Details: Patient LWBS Elopement at [facility] 08/06/2023 17:25 - Patient eloped with IV in place. - Patient eloped before treatment completed. - Patient with suicidal and/or homicidal ideations eloped. Details: Patient left AMA CRITERIA MET - Group Notification - [facility] - 2 Visits in 30 Days CARE PROVIDERS -, [facility] Dentist: Cementer Machine Applicator [facility] PHONE: [phone] -, Jose- Dentist: Cementer Machine Applicator [facility] Dental [facility] PHONE: [phone] HAL BUSH [facility] Current PHONE: Unknown MICHELLE LOVETT Emergency Medicine Current PHONE: [phone] MARIAN ENAMORADO Emergency Medicine Current [place] PHONE: [phone] JOSESITO PULIDO Emergency Medicine Current PHONE: [phone] JENNIFER TRINIDAD Nurse Practitioner: Current [place] PHONE: Unknown KEMAL FLETCHER Emergency Medicine Current PHONE: [phone] SHERRIE SPARROW Emergency Medicine Current [place] PHONE: [phone] INGRID PRO Current PHONE: Unknown BERTRAND BAKER Emergency Medicine Current PHONE: [phone] [facility]: Rural Health Current \F\ [facility] PHONE: [phone] BHARATI HERNANDEZ Emergency Medicine Current [place] PHONE: Unknown [facility] Kit PHONE: Unknown Care Guidelines exist for the following facilities: [facility] ( 04/02/2020 ) Jass VISIT COUNT (12 MO.) 10 ANURAG Rodriguez TOTAL 10 NOTE: Visits indicate total known visits. ED/UCC VISIT TRACKING (12 MO.) 06/26/2024 17:00 ANURAG [place] TYPE: Emergency COMPLAINT: - HEAD INJURY 06/23/2024 04:49 ANURAG [place] TYPE: Emergency [...] not intractable, without status epilepticus - Other long lines operator (current) drug therapy 01/30/2024 15:42 ANURAG [place] TYPE: Emergency COMPLAINT: - SEIZURE DIAGNOSES: - Alcohol abuse with withdrawal, unspecified - Blood alcohol level of 240 mg/100 ml or more - Nausea - Other long lines operator (current) drug therapy - Other seizures 08/13/2023 18:06 ANURAG [place] TYPE: Emergency COMPLAINT: - VOMITING BLOOD 08/13/2023 12:01 ANURAG [place] TYPE: Emergency COMPLAINT: - ALTERED DIAGNOSES: - Alcohol dependence with intoxication, unspecified - Alcohol dependence with withdrawal, unspecified - Blood alcohol level of 200-239 mg/100 ml - Other long lines operator (current) drug therapy - Syncope and collapse [...] care provider INPATIENT VISIT TRACKING (12 MO.) 06/23/2024 06:27 ANURAG [place] TYPE: Critical Care COMPLAINT: - ALCOHOL WITHDRAW 08/14/2023 16:49 ANURAG [place] TYPE: Critical [...] - Hematemesis - Hematemesis - Other long lines operator (current) drug therapy - Other nursing home (current) drug therapy - Other specified postprocedural states - Other specified postprocedural states - Unspecified fall, initial encounter [email or web address]
[2024-06-26] MEDS ORDERED: SODIUM CHLORIDE 0.9% 1,000 ML IV PRN (17:15)
[2024-06-26 17:59] LABS: BASOPHILS 0.2 % (0-2); HEMATOCRIT 40.2 % (35.0-50.0); HEMOGLOBIN 13.6 g/dL (12.0-18.0); LYMPHOCYTES 23.7 % (24-44); MCH 30.7 (27-36); MCHC 33.8 g/dl (30-36); MCV 90.9 fl (81-99); MONOCYTES 3.6 % (0-12); NEUTROPHILS 71.5 % (39-80); PLATELET COUNT 188 K/uL (140-440); RBC 4.42 M/ul (4.3-5.7); RDW 17.1 (10.5-15.0)
[2024-06-26 18:19] LABS: ALBUMIN 3.4 g/dL (3.4-5.0); ALBUMIN/GLOBULIN RATIO 0.87 (1.1-2.4); ANION GAP 15.9 (7-21); BILIRUBIN, TOTAL 0.3 ng/dL (0.2-1.0); BUN/CREATININE RATIO 12.67 (6.0-28.6); CALCIUM 8.2 mg/dL (8.5-10.1); CREATININE, SERUM 0.71 mg/dL (0.70-1.30); INR 1.04 (0.80-1.30); POTASSIUM 3.9 mmol/L (3.5-5.1); PROTEIN, TOTAL 7.3 g/dL (6.4-8.2); PROTIME 12.9 Sec (11.2-14.2)
[2024-06-26 19:42] LABS: BILIRUBIN, URINE NEGATIVE (negative); BLOOD/HGB, URINE NEGATIVE (Negative); KETONE, URINE NEGATIVE (Negative); LEUK ESTERASE, URINE NEGATIVE (negative); NITRITE, URINE NEGATIVE (negative); PH, URINE 5.5 (5-7)
[2024-06-26] MEDS ORDERED: ondansetron HCL 4 MG/2 ML VIAL IV ONE (19:45)
[2024-06-26 19:55] LABS: AMPHETAMINES, URINE NEGATIVE (NEGATIVE); BARBITURATES, URINE NEGATIVE (NEGATIVE); BENZODIAZEPINE, URINE POSITIVE (NEGATIVE); BUPRENORPHINE, URINE NEGATIVE (NEGATIVE); CANNABINOID, URINE NEGATIVE (NEGATIVE); COCAINE, URINE NEGATIVE (NEGATIVE); ECSTASY, URINE NEGATIVE (NEGATIVE); FENTANYL, URINE NEGATIVE (NEGATIVE); METHADONE, URINE NEGATIVE (NEGATIVE); OPIATES, URINE NEGATIVE (NEGATIVE); OXYCODONE, URINE NEGATIVE (NEGATIVE); PHENCYCLIDINE, URINE NEGATIVE (NEGATIVE)
[2024-06-26 21:04] VITALS: BP 103/67
== END 2024-06-26 21:05 | disposition home or self-care (01) ==
LOC: ED 16:59
PROVIDERS: Emergency Medicine
DX: F10.129 Alcohol abuse with intoxication, unspecified (principal); Y90.8 Blood alcohol level of 240 mg/100 ml or more; Z88.8 Allergy status to other drugs, medicaments and biological substances
CPT/HCPCS: 36415; 70450; 80053; 80307; 81003; 82140; 85025; 85610; 85730; 96374; 99284-25; G0480; J2405; J7030

== ENCOUNTER 2024-06-27 23:51 | Emergency (ER) | payer OTHER ==
[~2024-06-27] VITALS: Ht 180.3 cm; Wt 78.5 kg
[~2024-06-27 23:51] MED LIST changes: +MULTIVITAMINS 10 ML,FOLIC ACID 1 MG,THIAMINE HCL 100 MG in SODIUM CHLORIDE 0.9% 1,000 ML IV ONE; +levETIRAcetam 500 MG/5 ML VIAL IV ONE
--- OUTSIDE RECORDS SUMMARY | 2024-06-27 23:54 | XMS ---
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 - Patient eloped before treatment completed. - Patient with suicidal and/or homicidal ideations eloped. Details: Patient LWBS Elopement at [facility] 08/06/2023 17:25 - Patient eloped with IV in place. - Patient eloped before treatment completed. - Patient with suicidal and/or homicidal ideations eloped. Details: Patient left AMA CRITERIA MET - 6 ED Visits in 6 Months - Group Notification - [facility] - 2 Visits in 30 Days CARE PROVIDERS -[facility] Dentist: Ramp Lead [facility] PHONE: [phone] -Jose- Dentist: Ramp Lead [facility] PHONE: [phone] HAL BUSH [facility] Current PHONE: Unknown MICHELLE LOVETT Emergency Medicine Current PHONE: [phone] MARIAN ENAMORADO Emergency Medicine Current [place] PHONE: [phone] JOSESITO PULIDO Emergency Medicine Current PHONE: [phone] JENNIFER TRINIDAD Nurse Practitioner: Current CONNOR PHONE: Unknown KEMAL FELTCHER Emergency Medicine Current PHONE: [phone] SHERRIE SPARROW Emergency Medicine Current [place] PHONE: [phone] INGRID PRO Current PHONE: Unknown BERTRAND BAKER Emergency Medicine Current PHONE: [phone] [facility]: Rural Health Current \F\ [facility] PHONE: [phone] BHARATI HERNANDEZ Emergency Medicine Kiki ALVAREZ PHONE: Unknown [facility], [facility] Kit PHONE: Unknown Care Guidelines exist for the following facilities: [facility] ( 04/02/2020 ) Jass VISIT COUNT (12 MO.) 11 ANURAG Rodriguez TOTAL 11 NOTE: Visits indicate total known visits. ED/UCC VISIT TRACKING (12 MO.) 06/27/2024 23:52 ANURAG [place] TYPE: Emergency COMPLAINT: - POSS SEIZURE 06/26/2024 17:00 ANURAG [place] TYPE: Emergency COMPLAINT: - HEAD INJURY DIAGNOSES: - Alcohol abuse with intoxication, unspecified - Alcohol abuse, uncomplicated - Allergy status to other drugs, medicaments and biological substances - Blood alcohol level of 240 mg/100 ml or more 06/23/2024 04:49 ANURAG [place] TYPE: Emergency COMPLAINT: - VOMITING 05/22/2024 19:14 ANURAG [place] TYPE: Emergency COMPLAINT: - WITHDRAWAL DIAGNOSES: - Alcohol abuse with withdrawal, unspecified - Blood alcohol level of 120-199 mg/100 ml 05/19/2024 06:[address] [facility] [place]ass[place] TYPE: Emergency COMPLAINT: - SEIZURE DIAGNOSES: - Alcohol abuse, uncomplicated - Alcoholic gastritis without bleeding - Blood alcohol level of 240 mg/100 ml or more - Epilepsy, unspecified, not intractable, without status epilepticus - Other long-term (current) drug therapy 01/30/2024 15:[address] [facility] [place] HFranco Garcia [place] TYPE: Emergency COMPLAINT: - SEIZURE DIAGNOSES: - Alcohol abuse with withdrawal, unspecified - Blood alcohol level of 240 mg/100 ml or more - Nausea - Other long-term (current) drug therapy - Other seizures 08/13/2023 18:[address] [facility] Garcia [place] TYPE: Emergency COMPLAINT: - VOMITING BLOOD 08/13/2023 12:01 ANURAG [place] TYPE: Emergency COMPLAINT: - ALTERED DIAGNOSES: - Alcohol dependence with intoxication, unspecified - Alcohol dependence with withdrawal, unspecified - Blood alcohol level of 200-239 mg/100 ml - Other long-term (current) drug therapy - Syncope and collapse 08/12/2023 10:[address] [facility] Garcia [place] TYPE: Emergency COMPLAINT: - SUB ABUSED DIAGNOSES: - Alcohol abuse, uncomplicated - Blood alcohol level of 240 mg/100 ml or more - Unspecified abdominal pain 08/11/2023 14:[address] [facility] Garcia [place] TYPE: Emergency COMPLAINT: - WITHDRAWALS 08/06/2023 17:25 ANURAG [place] TYPE: Emergency COMPLAINT: - ALCOHOL WITHDRAWAL DIAGNOSES: - Alcohol abuse, uncomplicated - Procedure and treatment not carried out due to patient leaving prior to being seen by health care provider INPATIENT VISIT TRACKING (12 MO.) 06/23/2024 06:27 ANURAG [place] TYPE: Critical Care COMPLAINT: - ALCOHOL WITHDRAW DIAGNOSES: - Alcohol dependence with withdrawal, unspecified - Allergy status to other drugs, medicaments and biological substances - Allergy status to other drugs, medicaments and biological substances - Do not resuscitate - Do not resuscitate - Epilepsy, unspecified, not intractable, without status epilepticus - Epilepsy, unspecified, not intractable, without status epilepticus - Hypomagnesemia - Hypomagnesemia - Other boilermaker assembly and erection (current) drug therapy - Other boilermaker assembly and erection (current) drug therapy - Other specified postprocedural states - Other specified postprocedural states 08/14/2023 16:49 ANURAG [place] TYPE: Critical [...] epilepticus - Hematemesis - Hematemesis - Other boilermaker assembly and erection (current) drug therapy - Other long-term (current) drug therapy - Other specified postprocedural states - Other specified postprocedural states - Unspecified fall, initial encounter [email or web address]
[2024-06-28] MEDS ORDERED: LORazepam 2 MG/ML VIAL ONE (00:02)
[2024-06-28 00:05] LABS: BASOPHILS 0.4 % (0-2); HEMOGLOBIN 14.3 g/dL (12.0-18.0); NEUTROPHILS 49.5 % (39-80); PLATELET COUNT 176 K/uL (140-440); RDW 17.1 (10.5-15.0)
[2024-06-28 00:08] LABS: EOSINOPHILS 2.7 % (0-6); HEMATOCRIT 42.6 % (35.0-50.0); LYMPHOCYTES 43.6 % (24-44); MCH 30.5 (27-36); MCHC 33.5 g/dl (30-36); MCV 90.8 fl (81-99); MONOCYTES 3.8 % (0-12)
[2024-06-28] MEDS ORDERED: FOLIC ACID 1 MG/0.2 ML ML ONE (00:11)
[2024-06-28] MEDS ORDERED: LORazepam 2 MG/ML VIAL IV ONE (00:15)
[2024-06-28 00:22] LABS: ALBUMIN 3.5 g/dL (3.4-5.0); ALBUMIN/GLOBULIN RATIO 0.85 (1.1-2.4); ANION GAP 17.3 (7-21); BILIRUBIN, TOTAL 0.2 ng/dL (0.2-1.0); BUN/CREATININE RATIO 10.95 (6.0-28.6); CALCIUM 8.3 mg/dL (8.5-10.1); CREATININE, SERUM 0.73 mg/dL (0.70-1.30); MAGNESIUM 1.5 mg/dL (1.8-2.4); PHOSPHORUS, INORGANIC 3.4 mg/dL (2.5-4.9); POTASSIUM 4.3 mmol/L (3.5-5.1); PROTEIN, TOTAL 7.6 g/dL (6.4-8.2)
[2024-06-28 00:24] LABS: ACETAMINOPHEN 0 ug/mL (10-30); SALICYLATE 1.4 mg/dL (2.8-20.0)
[2024-06-28] MEDS ORDERED: ACETAMINOPHEN 500 MG TAB PO ONE (02:30)
[2024-06-28] MEDS ORDERED: MAGNESIUM OXIDE 400 MG TABLET PO ONE (02:30)
[2024-06-28] MEDS ORDERED: SERTRALINE HCL100 MG PO (02:44)
[2024-06-28] MEDS ORDERED: HYDROXYZINE HCL25 MG PO (02:44)
[2024-06-28] MEDS ORDERED: KEPPRA1000 MG PO (02:44)
[2024-06-28] MEDS ORDERED: MAGNESIUM OXID400 M1 PO (02:44)
[2024-06-28 05:41] VITALS: BP 105/67
[2024-06-28] MEDS ORDERED: MAGNESIUM400 MG PO (18:29)
[2024-06-28] MEDS ORDERED: KEPPRA500 MG PO (18:29)
[2024-06-29 09:53] LABS: KEPPRA (LEVETIRACETAM) <2 ug/mL (10-40)
== END 2024-06-28 05:40 | disposition home or self-care (01) ==
LOC: ED 23:51
PROVIDERS: Internal Medicine
DX: F10.229 Alcohol dependence with intoxication, unspecified (principal); Y90.8 Blood alcohol level of 240 mg/100 ml or more; G40.909 Epilepsy, unspecified, not intractable, without status epilepticus; I69.398 Other sequelae of cerebral infarction; Z88.8 Allergy status to other drugs, medicaments and biological substances; Z79.899 Other long term (current) drug therapy
CPT/HCPCS: 36415; 80053; 80177; 80307; 83735; 84100; 85025; 96365; 96375; 99284-25; A9270; G0480; J1953; J2060; J3411; J7030

== ENCOUNTER 2024-06-28 15:28 | Emergency (ER) | payer OTHER ==
[~2024-06-28] VITALS: Ht 180.3 cm; Wt 78.5 kg
[~2024-06-28 15:28] MED LIST changes: +HYDROXYZINE HCL25 MG PO; +MAGNESIUM OXID400 M1 PO; -MULTIVITAMINS 10 ML,FOLIC ACID 1 MG,THIAMINE HCL 100 MG in SODIUM CHLORIDE 0.9% 1,000 ML IV ONE; -levETIRAcetam 500 MG/5 ML VIAL IV ONE
--- OUTSIDE RECORDS SUMMARY | 2024-06-28 15:35 | XMS ---
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 - Patient eloped before treatment completed. - Patient with suicidal and/or homicidal ideations eloped. Details: Patient LWBS Elopement at [facility] 08/06/2023 17:25 - Patient eloped with IV in place. - Patient eloped before treatment completed. - Patient with suicidal and/or homicidal ideations eloped. Details: Patient left AMA CRITERIA MET - 6 ED Visits in 6 Months - Group Notification - [facility] - 2 Visits in 30 Days CARE PROVIDERS -[facility] Dentist: School Counsellor [facility] PHONE: [phone] -Jose- Dentist: School Counsellor Pending Sale To [facility] PHONE: [phone] HAL BUSH [facility] Current PHONE: Unknown MICHELLE LOVETT Emergency Medicine Current PHONE: [phone] MARIAN ENAMORADO Emergency Medicine Current [place] PHONE: [phone] JOSESITO PULIDO Emergency Medicine Current PHONE: [phone] JENNIFER TRINIDAD Nurse Practitioner: Current CONNOR PHONE: Unknown KEMAL FLETCHER Emergency Medicine Current PHONE: [phone] SHERRIE SPARROW Emergency Medicine Current [place] PHONE: [phone] INGRID PRO Current PHONE: Unknown BERTRAND BAKER Emergency Medicine Current PHONE: [phone] [facility]: Rural Health Current \F\ [facility] PHONE: [phone] BHARATI HERNANDEZ Emergency Medicine Kiki ALVAREZ PHONE: Unknown [facility], [facility] Kit PHONE: Unknown Care Guidelines exist for the following facilities: [facility] ( 04/02/2020 ) Jass VISIT COUNT (12 MO.) 12 ANURAG Rodriguez TOTAL 12 NOTE: Visits indicate total known visits. ED/UCC VISIT TRACKING (12 MO.) 06/28/2024 15:29 ANURAG [place] TYPE: Emergency COMPLAINT: - INTOXICATED 06/27/2024 23:52 ANURAG [place] TYPE: Emergency [...] TYPE: Emergency COMPLAINT: - VOMITING 05/22/2024 19:14 ANRUAG [place] TYPE: Emergency COMPLAINT: - WITHDRAWAL DIAGNOSES: - Alcohol abuse with withdrawal, unspecified - Blood alcohol level of 120-199 mg/100 ml 05/19/2024 06:[address] [facility] [address] [facility] [place] TYPE: Emergency COMPLAINT: - SEIZURE DIAGNOSES: - Alcohol abuse, uncomplicated - Alcoholic gastritis without bleeding - Blood alcohol level of 240 mg/100 ml or more - Epilepsy, unspecified, not intractable, without status epilepticus - Other half-way (current) drug therapy 01/30/2024 15:[address] [facility] [address] [facility] [place] TYPE: Emergency COMPLAINT: - SEIZURE DIAGNOSES: - Alcohol abuse with withdrawal, unspecified - Blood alcohol level of 240 mg/100 ml or more - Nausea - Other academic affairs dean (current) drug therapy - Other seizures 08/13/2023 18:06 ANURAG [place] TYPE: Emergency COMPLAINT: - VOMITING BLOOD 08/13/2023 12:01 ANURAG [place] TYPE: Emergency COMPLAINT: - ALTERED DIAGNOSES: - Alcohol dependence with intoxication, unspecified - Alcohol dependence with withdrawal, unspecified - Blood alcohol level of 200-239 mg/100 ml - Other half-way (current) drug therapy - Syncope and collapse 08/12/2023 10:[address] [facility] [address] Bab[facility] Garcia [place] TYPE: Emergency COMPLAINT: [...] epilepticus - Hypomagnesemia - Hypomagnesemia - Other half-way (current) drug therapy - Other academic affairs dean (current) drug therapy - Other specified postprocedural states - Other specified postprocedural states 08/14/2023 16:[address] [facility] [place] [...] epilepticus - Hematemesis - Hematemesis - Other academic affairs dean (current) drug therapy - Other half-way (current) drug therapy - Other specified postprocedural states - Other specified postprocedural states - Unspecified fall, initial encounter [email or web address]
[2024-06-28] MEDS ORDERED: levETIRAcetam 500 MG TAB PO ONE (16:30)
[2024-06-28] MEDS ORDERED: SODIUM CHLORIDE 0.9% 1,000 ML IV ONE (16:30)
[2024-06-28 17:02] LABS: BASOPHILS 0.5 % (0-2); EOSINOPHILS 0.6 % (0-6); HEMATOCRIT 41.3 % (35.0-50.0); HEMOGLOBIN 13.9 g/dL (12.0-18.0); LYMPHOCYTES 28.8 % (24-44); MCH 30.5 (27-36); MCHC 33.8 g/dl (30-36); MCV 90.2 fl (81-99); MONOCYTES 4.3 % (0-12); NEUTROPHILS 65.8 % (39-80); PLATELET COUNT 161 K/uL (140-440); RBC 4.58 M/ul (4.3-5.7); RDW 16.9 (10.5-15.0)
[2024-06-28 17:19] LABS: ALBUMIN 3.5 g/dL (3.4-5.0); ALBUMIN/GLOBULIN RATIO 0.88 (1.1-2.4); BILIRUBIN, TOTAL 0.4 ng/dL (0.2-1.0); BUN/CREATININE RATIO 12.5 (6.0-28.6); CALCIUM 8.6 mg/dL (8.5-10.1); CREATININE, SERUM 0.72 mg/dL (0.70-1.30); PROTEIN, TOTAL 7.5 g/dL (6.4-8.2)
[2024-06-28] MEDS ORDERED: KEPPRA500 MG PO (18:29)
[2024-06-28] MEDS ORDERED: MAGNESIUM400 MG PO (18:29)
[2024-06-28 18:40] VITALS: BP 109/73
== END 2024-06-28 18:40 | disposition home or self-care (01) ==
LOC: ED 15:28
PROVIDERS: Emergency Medicine
DX: F10.229 Alcohol dependence with intoxication, unspecified (principal); Z88.8 Allergy status to other drugs, medicaments and biological substances; Z79.899 Other long term (current) drug therapy
CPT/HCPCS: 36415; 80053; 83735; 85025; 99284; G0480; J7030

== ENCOUNTER 2024-06-29 19:50 | Emergency (ER) | payer OTHER ==
[~2024-06-29] VITALS: Ht 180.3 cm; Wt 76.4 kg
[~2024-06-29 19:50] MED LIST changes: +MAGNESIUM400 MG PO
--- OUTSIDE RECORDS SUMMARY | 2024-06-29 19:51 | XMS ---
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 - Patient eloped before treatment completed. - Patient with suicidal and/or homicidal ideations eloped. Details: Patient LWBS Elopement at [facility] 08/06/2023 17:25 - Patient eloped with IV in place. - Patient eloped before treatment completed. - Patient with suicidal and/or homicidal ideations eloped. Details: Patient left AMA CRITERIA MET - 6 ED Visits in 6 Months - Group Notification - [facility] - 2 Visits in 30 Days CARE PROVIDERS -[facility] Dentist: Base Cloth Inspector [facility] PHONE: [phone] -Jose- Dentist: Base Cloth Inspector [facility] Dental [facility] PHONE: [phone] HAL BUSH [facility] Current PHONE: Unknown MICHELLE LOVETT Emergency Medicine Current PHONE: [phone] MARIAN ENAMORADO Emergency Medicine Current [place] PHONE: [phone] JOSESITO PULIDO Emergency Medicine Current PHONE: [phone] JENNIFER TRINIDAD Nurse Practitioner: Current CONNOR PHONE: Unknown KEMAL FLETCHER Emergency Medicine Current PHONE: [phone] SHERRIE SPARROW Emergency Medicine Current [place] PHONE: [phone] INGRID PRO Current PHONE: Unknown BERTRAND BAKER Emergency Medicine Current PHONE: [phone] [facility]: Rural Health Current \F\ [facility] PHONE: [phone] BHARATI HERNANDEZ Emergency Medicine Kiki ALVAREZ PHONE: Unknown [facility], [facility] Kit PHONE: Unknown Care Guidelines exist for the following facilities: [facility] ( 04/02/2020 ) Jass VISIT COUNT (12 MO.) 13 ANURAG Rodriguez TOTAL 13 NOTE: Visits indicate total known visits. ED/UCC VISIT TRACKING (12 MO.) 06/29/2024 19:50 ANURAG [place] TYPE: Emergency COMPLAINT: - INTOXICATED 06/28/2024 15:29 ANURAG [place] TYPE: Emergency COMPLAINT: - INTOXICATED 06/27/2024 23:52 ANURAG [place] TYPE: Emergency COMPLAINT: - POSS SEIZURE DIAGNOSES: - Alcohol dependence with intoxication, unspecified - Allergy status to other drugs, medicaments and biological substances - Altered mental status, unspecified - Blood alcohol level of 240 mg/100 ml or more - Epilepsy, unspecified, not intractable, without status epilepticus - Other civil service worker (current) drug therapy - Other sequelae of cerebral infarction 06/26/2024 17:00 ANURAG [place] TYPE: Emergency COMPLAINT: - HEAD INJURY DIAGNOSES: - Alcohol abuse with intoxication, unspecified - Alcohol abuse, uncomplicated - Allergy status to other drugs, medicaments and biological substances - Blood alcohol level of 240 mg/100 ml or more 06/23/2024 04:49 [facility] Garcia [place] TYPE: Emergency COMPLAINT: - VOMITING 05/22/2024 19:14 ANURAG [place] TYPE: Emergency COMPLAINT: - WITHDRAWAL DIAGNOSES: - Alcohol abuse with withdrawal, unspecified - Blood alcohol level of 120-199 mg/100 ml 05/19/2024 06:16 [facility] Bab[facility] Garcia [place] TYPE: Emergency COMPLAINT: - SEIZURE DIAGNOSES: - Alcohol abuse, uncomplicated - Alcoholic gastritis without bleeding - Blood alcohol level of 240 mg/100 ml or more - Epilepsy, unspecified, not intractable, without status epilepticus - Other custodial (current) drug therapy 01/30/2024 15:42 [facility] Bab[facility] Garcia [place] TYPE: Emergency COMPLAINT: - SEIZURE DIAGNOSES: - Alcohol abuse with withdrawal, unspecified - Blood alcohol level of 240 mg/100 ml or more - Nausea - Other custodial (current) drug therapy - Other seizures 08/13/2023 18:06 [facility] Bab[facility] Garcia [place] TYPE: Emergency COMPLAINT: - VOMITING BLOOD 08/13/2023 12:01 ANURAG [place] TYPE: Emergency COMPLAINT: - ALTERED DIAGNOSES: - Alcohol dependence with intoxication, unspecified - Alcohol dependence with withdrawal, unspecified - Blood alcohol level of 200-239 mg/100 ml - Other custodial (current) drug therapy - Syncope and collapse 08/12/2023 10:27 [facility] [place] TYPE: Emergency COMPLAINT: - SUB [...] epilepticus - Hypomagnesemia - Hypomagnesemia - Other civil service worker (current) drug therapy - Other civil service worker (current) drug therapy - Other specified postprocedural [...] epilepticus - Hematemesis - Hematemesis - Other civil service worker (current) drug therapy - Other custodial (current) drug therapy - Other specified postprocedural states - Other specified postprocedural states - Unspecified fall, initial encounter [email or web address]
[2024-06-29] MEDS ORDERED: MULTIVITAMINS 10 ML,FOLIC ACID 1 MG,THIAMINE HCL 100 MG in SODIUM CHLORIDE 0.9% 1,000 ML IV ONE (20:00)
[2024-06-29 20:27] VITALS: BP 113/86
== END 2024-06-29 20:27 | disposition other institution, planned readmission (95) ==
LOC: ED 19:50
DX: F10.129 Alcohol abuse with intoxication, unspecified (principal); Z79.899 Other long term (current) drug therapy; Z88.8 Allergy status to other drugs, medicaments and biological substances
CPT/HCPCS: 80053; 83735; 84100; 85025; 99284; G0480

== ENCOUNTER 2024-07-06 03:43 | Emergency (ER) | payer OTHER ==
[~2024-07-06] VITALS: Ht 180.3 cm; Wt 75.0 kg
--- OUTSIDE RECORDS SUMMARY | 2024-07-06 03:50 | XMS ---
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 - Patient eloped before treatment completed. - Patient with suicidal and/or homicidal ideations eloped. Details: Patient LWBS Elopement at [facility] 08/06/2023 17:25 - Patient eloped with IV in place. - Patient eloped before treatment completed. - Patient with suicidal and/or homicidal ideations eloped. Details: Patient left AMA CRITERIA MET - 6 ED Visits in 6 Months - Group Notification - [facility] - 2 Visits in 30 Days CARE PROVIDERS -[facility] Dentist: Health Commissioner [facility] PHONE: [phone] -Jose- Dentist: Health Commissioner [facility] Dental [facility] PHONE: [phone] HAL BUSH [facility] Current PHONE: Unknown MICHELLE LOVETT Emergency Medicine Current PHONE: [phone] MARIAN ENAMORADO Emergency Medicine Current [place] PHONE: [phone] JOSESITO PULIDO Emergency Medicine Current PHONE: [phone] JENNIFER TRINIDAD Nurse Practitioner: Current [place]NOR PHONE: Unknown KEMAL FLETCHER Emergency Medicine Current PHONE: [phone] SHERRIE SPARROW Emergency Medicine Current [place] PHONE: [phone] INGRID PRO Current PHONE: Unknown BERTRAND BAKER Emergency Medicine Current PHONE: [phone] [facility]: Rural Health Current \F\ [facility] PHONE: [phone] BHARATI HERNANDEZ Emergency Medicine Kiki ALVAREZ PHONE: Unknown [facility] Kit PHONE: Unknown Care Guidelines exist for the following facilities: [facility] ( 04/02/2020 ) Jass VISIT COUNT (12 MO.) 14 ANURAG Rodriguez TOTAL 14 NOTE: Visits indicate total known visits. ED/UCC VISIT TRACKING (12 MO.) 07/06/2024 03:44 ANURAG [place] TYPE: Emergency COMPLAINT: - WEAKNESS 06/29/2024 19:50 ANURAG [place] TYPE: Emergency COMPLAINT: - INTOXICATED DIAGNOSES: - Alcohol abuse with intoxication, unspecified - Allergy status to other drugs, medicaments and biological substances - Other correction (current) drug therapy 06/28/2024 15:29 ANURAG [place] TYPE: Emergency COMPLAINT: - INTOXICATED DIAGNOSES: - Alcohol dependence with intoxication, unspecified - Allergy status to other drugs, medicaments and biological substances - Other correction (current) drug therapy 06/27/2024 23:52 ANURAG [place] TYPE: Emergency COMPLAINT: - POSS SEIZURE DIAGNOSES: - Alcohol dependence with intoxication, unspecified - Allergy status to other drugs, medicaments and biological substances - Altered mental status, unspecified - Blood alcohol level of 240 mg/100 ml or more - Epilepsy, unspecified, not intractable, without status epilepticus - Other termination clerk (current) drug therapy - Other sequelae of [...] Emergency COMPLAINT: - VOMITING 05/22/2024 19:14 ANURAG [place] TYPE: Emergency COMPLAINT: - WITHDRAWAL DIAGNOSES: - Alcohol abuse with withdrawal, unspecified - Blood alcohol level of 120-199 mg/100 ml 05/19/2024 06:16 ANURAG [place] HFranco Garcia [place] TYPE: Emergency COMPLAINT: - SEIZURE DIAGNOSES: - Alcohol abuse, uncomplicated - Alcoholic gastritis without bleeding - Blood alcohol level of 240 mg/100 ml or more - Epilepsy, unspecified, not intractable, without status epilepticus - Other correction (current) drug therapy 01/30/2024 15:42 ANURAG [place] WassermanFranco Garcia [place] TYPE: Emergency COMPLAINT: - SEIZURE DIAGNOSES: - Alcohol abuse with withdrawal, unspecified - Blood alcohol level of 240 mg/100 ml or more - Nausea - Other correction (current) drug therapy - Other seizures 08/13/2023 18:[address] [facility] [place] HFranco Garcia [place] TYPE: Emergency COMPLAINT: - VOMITING BLOOD 08/13/2023 12:01 ANURAG [place] TYPE: Emergency COMPLAINT: - ALTERED DIAGNOSES: - Alcohol dependence with intoxication, unspecified - Alcohol dependence with withdrawal, unspecified - Blood alcohol level of 200-239 mg/100 ml - Other correction (current) drug therapy - Syncope and collapse 08/12/2023 10:27 ANURAG [place] TYPE: Emergency COMPLAINT: - SUB ABUSED DIAGNOSES: - Alcohol abuse, uncomplicated - Blood alcohol level of 240 mg/100 ml or more - Unspecified abdominal pain 08/11/2023 14:[address] [facility] Bab[facility] Garcia [place] TYPE: Emergency COMPLAINT: [...] epilepticus - Hypomagnesemia - Hypomagnesemia - Other termination clerk (current) drug therapy - Other termination clerk (current) drug therapy - Other specified postprocedural [...] epilepticus - Hematemesis - Hematemesis - Other correction (current) drug therapy - Other termination clerk (current) drug therapy - Other specified postprocedural states - Other specified postprocedural states - Unspecified fall, initial encounter [email or web address]
[2024-07-06] MEDS ORDERED: PROCHLORPERAZINE EDISYLATE 10 MG/2 ML VIAL IV ONE (04:00)
[2024-07-06] MEDS ORDERED: FOLIC ACID 1 MG/0.2 ML ML ONE (04:04)
[2024-07-06 04:05] LABS: BASOPHILS 0.2 % (0-2); EOSINOPHILS 0.2 % (0-6); HEMATOCRIT 43.3 % (35.0-50.0); HEMOGLOBIN 14.6 g/dL (12.0-18.0); LYMPHOCYTES 31.7 % (24-44); MCH 30.4 (27-36); MCHC 33.7 g/dl (30-36); MCV 90.2 fl (81-99); MONOCYTES 6.6 % (0-12); NEUTROPHILS 61.3 % (39-80); PLATELET COUNT 117 K/uL (140-440); RDW 18.1 (10.5-15.0)
[2024-07-06] MEDS ORDERED: MULTIVITAMINS 10 ML,FOLIC ACID 1 MG,THIAMINE HCL 100 MG in SODIUM CHLORIDE 0.9% 1,000 ML IV ONE (04:15)
[2024-07-06 04:16] LABS: ALBUMIN 3.8 g/dL (3.4-5.0); ALBUMIN/GLOBULIN RATIO 0.86 (1.1-2.4); ANION GAP 19.1 (7-21); BILIRUBIN, TOTAL 0.5 ng/dL (0.2-1.0); BUN/CREATININE RATIO 11.11 (6.0-28.6); CALCIUM 8.4 mg/dL (8.5-10.1); CREATININE, SERUM 0.9 mg/dL (0.70-1.30); MAGNESIUM 1.4 mg/dL (1.8-2.4); POTASSIUM 4.1 mmol/L (3.5-5.1); PROTEIN, TOTAL 8.2 g/dL (6.4-8.2)
[2024-07-06] MEDS ORDERED: DEXTROSE 50% 50 ML SYR IV ONE (04:30)
[2024-07-06] MEDS ORDERED: MAGNESIUM SULFATE 2 GM/50 ML BAG IV ONE (04:45)
[2024-07-06] MEDS ORDERED: levETIRAcetam 500 MG TAB PO ONE (05:45)
[2024-07-06] MEDS ORDERED: ONDANSETRON 4 MG HOME.PACK SL ONE (05:45)
[2024-07-06 07:22] VITALS: BP 122/66
== END 2024-07-06 07:25 | disposition home or self-care (01) ==
LOC: ED 03:43
PROVIDERS: Family Medicine
DX: F10.20 Alcohol dependence, uncomplicated (principal); E83.42 Hypomagnesemia; Z88.8 Allergy status to other drugs, medicaments and biological substances; Z79.899 Other long term (current) drug therapy
CPT/HCPCS: 36415; 72170; 80053; 83690; 83735; 85025; 96365; 96367; 96375; 99284-25; A9270; G0480; J0780; J3411; J3475; J7030